=== PATIENT | male | born 1990 | race Caucasian/White ===

== ENCOUNTER 2018-03-30 20:15 | Emergency (ER) | payer MEDICARE, MEDICAID ==
[2018-03-30 20:36] VITALS: BP 124/67
--- NOTE | 2018-03-30 21:12 | UC ---
Respiratory Complaint HPI - HPI Summary HPI Summary: Patient presents to urgent care reporting 7-8 days of cough with productive yellow to green sputum. Patient states he felt warm but hasn't taken his temperature. Patient states at times she feels wheezing. Patient works [employer] has had multiple sick contacts. Patient states he did get a flu shot this year. Patient denies nausea vomiting. Patient with mild head congestion. She denies ear pain but states his ears feel "plugged." Patient denies nausea or vomiting. Patient states his chest and lungs hurt from coughing. Patient has not taken any [id number] cough medication. No asthma, no lung dx, no tobacco Patient's medications reviewed this visit. - History of Current Complaint Chief Complaint: UCGeneralIllness Stated Complaint: COUGH Time Seen by Provider: 03/30/18 21:11 Hx Obtained From: Patient Onset/Duration: Lasting Days Severity Initially: Mild Severity Currently: Mild Pain Intensity: 2 - with coughing Pain Scale Used: 0-10 Numeric - Allergies/Home Medications Allergies/Adverse Reactions: Allergies Allergy/AdvReac Type Severity Reaction Status Date / Time No Known Allergies Allergy Verified 03/30/18 20:26 PMH/Surg Hx/FS Hx/Imm Hx Previously Healthy: Yes Psychological History: Depression Other History Of: Negative For: HIV, Hepatitis B, Hepatitis C, Anticoagulant Therapy - Surgical History Surgical History: Yes Surgery Procedure, Year, and Place: appendectomy - Family History Known Family History: Positive: Diabetes, Non-Contributory Negative: Cardiac Disease, Hypertension, Renal Disease - Social History Occupation: Employed Full-time - [employer] Alcohol Use: None Substance Use Type: None Smoking Status (MU): Never Smoked Tobacco Review of Systems All Other Systems Reviewed And Are Negative: Yes Constitutional: Positive: Fever - tactile Skin: Positive: Negative Eyes: Positive: Negative ENT: Positive: Ear Ache - plugged, Nasal Discharge, Sinus Congestion, Sinus Pain /Tenderness Respiratory: Positive: Cough, Other - chest discomfort with cough. Negative: Shortness Of Breath Physical Exam - Summary Physical Exam Summary: Vital Signs Reviewed: Yes A+Ox3, no distress Eyes: Conjunctiva Clear, ALEX. EOM intact and full ENT: Hearing grossly normal cerumen b/l canals, turbinates inflammed. mild PND , mmoist, uvula midline, no exudate, no erythema Neck: Positive: Supple Respiratory: Positive: No respiratory distress, No accessory muscle use, mild intermittent cough, end exp wheeze throughout n Cardiovascular: RRR nl s1, s2 no m/r CBT <2 sec abd soft + BS nt/nd no guarding, no distension Musculoskeletal Exam: MARIE x 4 without difficulty Strength Intact, ROM Intact Neurological: Positive: Alert, + sensation throughout Psychological: Positive: Normal Response To Family Skin: Positive: no rash, no ecchymosis Triage Information Reviewed: Yes Vital Signs: Initial Vital Signs Temp 97.3 F 03/30/18 20:30 Pulse 87 03/30/18 20:30 Resp 18 03/30/18 20:30 BP 124/67 03/30/18 20:30 Pulse Ox 99 03/30/18 20:30 UC Diagnostic Evaluation - Laboratory O2 Sat by Pulse Oximetry: 99 Re-Evaluation - Re-Evaluation First Eval Change: Improved - TM x2 visulaized s/p irrigation- no fluid, erythrma Respiratory Course/Dx - Course Course Of Treatment: Patient presents to urgent care with some 8 days of progressive cough productive of yellow-green sputum. An x-ray wheezing. Nasal congestion. Patient also reports tactile temperature fatigue. 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 Patient to get the flu vaccine. These vital signs stable. On exam patient with mild intermittent cough. Patient does have and expiratory wheezing throughout. No accessory muscle use. Patient also noted to have cerumen impaction bilaterally. We'll irrigate the ears. We'll start patient on amoxicillin as well as an MDI. Patient comfortable and seizures before. Discussed with patient [id number] medications, secretion precaution. Humidified air. Patient states understanding and agreement with plan. - Differential Dx/Diagnosis Provider Diagnoses: cerumen impaction. acute bronchitis Discharge - Sign-Out/Discharge Documenting (check all that apply): Patient Departure All imaging exams completed and their final reports reviewed: No Studies - Discharge Plan Condition: Stable Disposition: HOME Prescriptions: Amoxicillin PO (*) [Amoxicillin 500 MG CAP*] 500 mg PO Q12H #13 cap Patient Education Materials: Cerumen Impaction (ED), Acute Bronchitis (ED) Referrals: Oscar Sloan MD [Primary Care Provider] - Additional Instructions: -Take antibiotics exactly as prescribed until gone -Use your albuterol puffer - 2 puffs ever 4 hours for the next 2 days - then as needed -Stay well hydrated - avoid excess caffeine and all alcohol - eat regular, healthy meals - - humidify the air in the room where you sleep - boil water, run a hot steam shower, vaporizer, cups of water by heat register - okay to take over the counter decongestant and cough medication -- These infections are spread by secretions - do NOT share eating or drinking utensils - clean items you share with other people such as cell phones, computer mouse, TV remote, computer tablets,etc.. Once you have been antibiotics for 2 days, change your toothbrush and your pillowcase. -Contact your doctor to arrange a follow-up appointment this week. Call your doctor, return here or go to the emergency department with any questions or concerns - Billing Disposition and Condition Condition: STABLE Disposition: Home
[2018-03-30] MEDS ORDERED: Amoxicillin PO (*) 500 MG CAP PO ONE (21:18)
[2018-03-30] MEDS ORDERED: Albuterol HFA INHALER* 8 gm MDI INH ONE (21:19)
== END 2018-03-30 21:50 | disposition home or self-care (01) ==
LOC: UCEAST 20:15
DX: J20.9 Acute bronchitis, unspecified (principal); H61.23 Impacted cerumen, bilateral
CPT/HCPCS: 99212; A9270-GY; G0463

== ENCOUNTER 2018-12-13 18:41 | Emergency (ER) | payer MEDICARE, MEDICAID ==
[2018-12-13] MEDS ORDERED: Tetan/Diph/Pertus SYR(Tdap)* 0.5 ML SYR(BOOSTRIX) use SYR IM ONE (18:53)
[2018-12-13] MEDS ORDERED: Ciprofloxacin TAB* 500 MG PO ONE (18:59)
--- NOTE | 2018-12-13 19:03 | ED ---
Lower Extremity - HPI Summary HPI Summary: 28-year-old male presents after stepping on 2 nails today. He states that he was working on a barn and ended up stepping on two nails. He states that nails went through his shoe into his foot. He removed his foot from the board and the nails came out of his foot. He is unsure of his last tetanus was. He did not clean the area out. He is able to ambulate without difficulty. Has no medical conditions. denies any foreign body currently. - History of Current Complaint Chief Complaint: EDExtremityLower Stated Complaint: STEPPED ON A NAIL PER PT Time Seen by Provider: 12/13/18 18:52 Pain Intensity: 10 - Allergies/Home Medications Allergies/Adverse Reactions: Allergies Allergy/AdvReac Type Severity Reaction Status Date / Time No Known Allergies Allergy Verified 03/30/18 20:26 Home Medications: Home Medications raNITIdine HCl [Ranitidine HCl] 150 mg PO BID 12/13/18 [History Confirmed ] PMH/Surg Hx/FS Hx/Imm Hx Endocrine/Hematology History: Denies: Hx Anticoagulant Therapy, Hx Diabetes, Hx Thyroid Disease Cardiovascular History: Denies: Hx Congestive Heart Failure, Hx Deep Vein Thrombosis, Hx Hypertension , Hx Myocardial Infarction, Hx Pacemaker/ICD Respiratory History: Denies: Hx Asthma, Hx Chronic Obstructive Pulmonary Disease (COPD), Hx Lung Cancer, Hx Pneumonia, Hx Pulmonary Embolism GI History: Denies: Hx Gall Bladder Disease, Hx Gastrointestinal Bleed, Hx Ulcer, Hx Urosepsis History: Denies: Hx Kidney Stones, Hx Renal Disease Neurological History: Denies: Hx Dementia, Hx Migraine, Hx Seizures, Hx Transient Ischemic Attacks (TIA) Psychiatric History: Reports: Hx of Violent Episodes Against Others - When patient isn't taking meds Denies: Hx Anxiety, Hx Depression, Hx Schizophrenia, Hx Bipolar Disorder - Surgical History Surgery Procedure, Year, and Place: appendectomy Infectious Disease History: No Infectious Disease History: Denies: Hx Hepatitis, Hx Human Immunodeficiency Virus (HIV), History Other Infectious Disease, Traveled Outside the [place] in Last 30 Days - Family History Known Family History: Positive: Diabetes, Non-Contributory Negative: Cardiac Disease, Hypertension, Renal Disease - Social History Alcohol Use: None Substance Use Type: Reports: None Smoking Status (MU): Never Smoked Tobacco Review of Systems Negative: Fever Negative: Chest Pain Negative: Shortness Of Breath Positive: Other - puncture wound left foot All Other Systems Reviewed And Are Negative: Yes Physical Exam Triage Information Reviewed: Yes Vital Signs On Initial Exam: Initial Vitals Temp Pulse Resp BP Pulse Ox 98.0 F 101 17 182/103 98 12/13/18 18:43 12/13/18 18:43 12/13/18 18:43 12/13/18 18:43 12/13/18 18:43 Vital Signs Reviewed: Yes Appearance: Positive: Well-Appearing Skin: Positive: Warm, Dry, Other - 2 puncture wounds to left foot Head/Face: Positive: Normal Head/Face Inspection Eyes: Positive: Normal, Conjunctiva Clear ENT: Positive: Pharynx normal Respiratory/Lung Sounds: Positive: Clear to Auscultation, Breath Sounds Present Cardiovascular: Positive: Normal, RRR Musculoskeletal: Positive: Strength/ROM Intact - left foot, Other - good pulses Neurological: Positive: Normal Psychiatric: Positive: Normal Diagnostics - Vital Signs Vital Signs Temp Pulse Resp BP Pulse Ox 12/13/18 18:43 98.0 F 101 17 182/103 98 - Laboratory Lab Statement: Any lab studies that have been ordered have been reviewed, and results considered in the medical decision making process. Lower Extremity Course/Dx - Course Course Of Treatment: 28-year-old male presents after stepping on 2 nails today. He states that he was working on a barn and ended up stepping on two nails. He states that nails went through his shoe into his foot. He removed his foot from the board and the nails came out of his foot. He is unsure of his last tetanus was. He did not clean the area out. He is able to ambulate without difficulty. Has no medical conditions. On exam has 2 puncture wounds noted to the left foot. Area was irrigated out. gave tetanus and started on Cipro due to going through nail going through shoes. told if develop any signs of infection to return. Patient understands agrees with plan. - Diagnoses Differential Diagnosis/HQI/PQRI: Positive: Foreign Body, Infection, Other - puncture wound, laceration Provider Diagnoses: Puncture wound of left foot Discharge - Sign-Out/Discharge Documenting (check all that apply): Patient Departure Patient Received Moderate/Deep Sedation with Procedure: No - Discharge Plan Condition: Good Disposition: HOME Prescriptions: Ciprofloxacin TAB* [Cipro 500 MG TAB*] 500 mg PO BID #13 tab Patient Education Materials: Puncture Wound (ED) Referrals: Oscar Sloan MD [Primary Care Provider] - Additional Instructions: Take antibiotic twice a day for 7 days Soak area twice a day Place Neosporin on area Return to ED if develop any signs of infection such as spreading redness, fever , or pus, or any new or worsening symptoms - Billing Disposition and Condition Condition: GOOD Disposition: Home - Attestation Statements Provider Attestation: I am administratively signing this document. I was available for consultation for this patient. I did not evaluate the patient, did not have a doctor/patient relationship with the patient, or participate in any medical decision making or disposition decisions unless I am specifically named in the chart as having consulted on the patient. If I have consulted on the patient, please see my own ED note on the patient encounter. Will Burks MD
[2018-12-13 19:14] VITALS: BP 154/91
== END 2018-12-13 19:13 | disposition home or self-care (01) ==
LOC: ED 18:41
DX: S91.332A Puncture wound without foreign body, left foot, initial encounter (principal); Z23 Encounter for immunization; W22.8XXA Striking against or struck by other objects, initial encounter; Y92.71 Barn as the place of occurrence of the external cause; Y99.0 Civilian activity done for income or pay
CPT/HCPCS: 90471; 90715; 99282; A9270-GY

== ENCOUNTER 2021-05-20 16:06 | Inpatient (IN) ==
[2021-05-20 17:55] LABS: ABS Basophils 0.1 10^3/ul (0-0.2); ABS Lymphocytes 1.4 10^3/ul (1.0-4.8); ABS Monocytes 0.5 10^3/ul (0-0.8); ABS Neutrophils 4.4 10^3/ul (1.5-7.7); ABS Nucleated RBC 0.1 10^3/ul; Eosinophil % 0.7 %; Hematocrit 18 % (42-52); Hemoglobin 5.5 g/dL (14.0-18.0); Lymphocyte % 21.4 %; Mean Corpuscular HGB Conc 30 g/dL (31-36); Mean Corpuscular Hemoglobin 19 pg (27-31); Mean Corpuscular Volume 61 fL (80-94); Mean Platelet Volume 7.4 fL (7.4-10.4); Nucleated Red Blood Cells % 0.9; Platelet Count 386 10^3/uL (150-450); Red Blood Count 2.95 10^6 /uL (4.18-5.48); Red Cell Distribution Width 20 % (10-15); White Blood Count 6.4 10^3/uL (3.5-10.8)
[2021-05-20 18:03] LABS: Albumin 4.4 g/dL (3.2-5.2); Albumin/Globulin Ratio 1.8 (1-3); Calcium 8.6 mg/dL (8.6-10.3); Globulin 2.5 g/dL (2-4); Potassium 3.4 mmol/L (3.5-5.0); Total Bilirubin 0.3 mg/dL (0.2-1.0); Total Protein 6.9 g/dL (6.4-8.9); eGFR CKD-EPI 125.8 (>60)
[2021-05-20 18:06] LABS: Troponin I 0.01 ng/mL (<0.03)
[2021-05-20] MEDS ORDERED: Pantoprazole VIAL 40 MG VIAL IV ONE (18:42)
[2021-05-20] MEDS ORDERED: Potassium Chlor 20 meq TAB.ER PO ONE (21:45)
[2021-05-20] MEDS ORDERED: Ondansetron 4 mg VIAL 2 MG/ML 2 ml VIAL IV PRN (22:20)
[2021-05-21 00:50] LABS: Ferritin 1.6 ng/mL (24-336)
[2021-05-21 00:54] LABS: Folate 14.14 ng/mL (5.90-24.80)
[2021-05-21 01:23] LABS: Troponin I 0.01 ng/mL (<0.03)
[2021-05-21 06:02] LABS: ABS Basophils 0.1 10^3/ul (0-0.2); ABS Eosinophils 0.1 10^3/ul (0-0.6); ABS Lymphocytes 1.8 10^3/ul (1.0-4.8); ABS Monocytes 0.7 10^3/ul (0-0.8); ABS Neutrophils 4.2 10^3/ul (1.5-7.7); ABS Nucleated RBC 0.1 10^3/ul; Eosinophil % 1.7 %; Hematocrit 18 % (42-52); Hemoglobin 5.8 g/dL (14.0-18.0); Lymphocyte % 26.8 %; Mean Corpuscular HGB Conc 32 g/dL (31-36); Mean Corpuscular Hemoglobin 20 pg (27-31); Mean Corpuscular Volume 63 fL (80-94); Mean Platelet Volume 6.7 fL (7.4-10.4); Nucleated Red Blood Cells % 0.7; Platelet Count 322 10^3/uL (150-450); Red Blood Count 2.88 10^6 /uL (4.18-5.48); Red Cell Distribution Width 23 % (10-15); White Blood Count 6.9 10^3/uL (3.5-10.8)
[2021-05-21 06:13] LABS: Albumin 4.1 g/dL (3.2-5.2); Calcium 8.6 mg/dL (8.6-10.3); Direct Bilirubin 0.1 mg/dL (0.03-0.18); Globulin 2.1 g/dL (2-4); Indirect Bilirubin 0.5 mg/dL (0.3-1.0); Potassium 3.9 mmol/L (3.5-5.0); Total Bilirubin 0.6 mg/dL (0.2-1.0); Total Protein 6.2 g/dL (6.4-8.9); eGFR CKD-EPI 125.8 (>60)
[2021-05-21] MEDS: Pantoprazole VIAL 40 MG VIAL IV SCH (09:31)
[2021-05-21] MEDS ORDERED: PEG 3000 GI LAVAGE 1 GALLON PO ONE ×2 (09:39→17:00)
[2021-05-21 11:12] LABS: Hematocrit 21 % (42-52); Hemoglobin 6.5 g/dL (14.0-18.0)
[2021-05-21 21:32] LABS: Hematocrit 26 % (42-52); Hemoglobin 8.2 g/dL (14.0-18.0)
[2021-05-22 06:17] LABS: Hematocrit 24 % (42-52); Hemoglobin 7.9 g/dL (14.0-18.0); Mean Corpuscular HGB Conc 33 g/dL (31-36); Mean Corpuscular Hemoglobin 22 pg (27-31); Mean Corpuscular Volume 67 fL (80-94); Mean Platelet Volume 8.4 fL (7.4-10.4); Platelet Count 277 10^3/uL (150-450); Red Blood Count 3.61 10^6 /uL (4.18-5.48); Red Cell Distribution Width 27 % (10-15); White Blood Count 6.2 10^3/uL (3.5-10.8)
[2021-05-22 06:38] LABS: Calcium 8.5 mg/dL (8.6-10.3); Potassium 3.7 mmol/L (3.5-5.0); eGFR CKD-EPI 124.7 (>60)
[2021-05-22] MEDS ORDERED: PEG 3000 GI LAVAGE 1 GALLON PO ONE ×2 (08:00→16:30)
[2021-05-22] MEDS: Pantoprazole VIAL 40 MG VIAL IV SCH (08:37)
[2021-05-22] MEDS ORDERED: Midazolam 10 mg/10 ml VIAL 1 mg/ml 10 ml VIAL (10 mg) ONE (15:46)
[2021-05-22] MEDS ORDERED: fentaNYL 100 mcg/2 ml 50 MCG/ML VIAL ONE (15:46)
[2021-05-23 06:14] LABS: ABS Basophils 0.1 10^3/ul (0-0.2); ABS Eosinophils 0.2 10^3/ul (0-0.6); ABS Lymphocytes 1.6 10^3/ul (1.0-4.8); ABS Monocytes 0.6 10^3/ul (0-0.8); ABS Neutrophils 3.5 10^3/ul (1.5-7.7); Eosinophil % 2.8 %; Hematocrit 25 % (42-52); Hemoglobin 8.2 g/dL (14.0-18.0); Lymphocyte % 26.8 %; Mean Corpuscular HGB Conc 33 g/dL (31-36); Mean Corpuscular Hemoglobin 22 pg (27-31); Mean Corpuscular Volume 67 fL (80-94); Mean Platelet Volume 8.3 fL (7.4-10.4); Nucleated Red Blood Cells % 0.2; Platelet Count 266 10^3/uL (150-450); Red Blood Count 3.77 10^6 /uL (4.18-5.48); Red Cell Distribution Width 28 % (10-15)
[2021-05-23 06:24] LABS: Calcium 8.6 mg/dL (8.6-10.3); Magnesium 2.2 mg/dL (1.9-2.7); Potassium 3.5 mmol/L (3.5-5.0); eGFR CKD-EPI 124.2 (>60)
[2021-05-23] MEDS ORDERED: Flu vaccine *QUAD* 2021-22* 0.5 ML SYRINGE IM ONE (09:00)
[2021-05-23] MEDS: Pantoprazole VIAL 40 MG VIAL IV SCH (10:39)
[2021-05-23 15:13] LABS: % Iron Saturation 3 % (14 - 50); Total Iron Binding Capacity 430 mcg/dL (250 - 400)
[2021-05-23] MEDS ORDERED: fentaNYL 100 mcg/2 ml 50 MCG/ML VIAL ONE (15:36)
[2021-05-23] MEDS ORDERED: Midazolam 10 mg/10 ml VIAL 1 mg/ml 10 ml VIAL (10 mg) ONE (15:36)
[2021-05-24] MEDS ORDERED: Iron Sucrose 200 MG in NS 0.9% 100 ml BAG 100 ML IVPB ONE (07:15)
[2021-05-24 07:25] LABS: ABS Basophils 0.1 10^3/ul (0-0.2); ABS Eosinophils 0.2 10^3/ul (0-0.6); ABS Lymphocytes 1.4 10^3/ul (1.0-4.8); ABS Monocytes 0.5 10^3/ul (0-0.8); ABS Neutrophils 2.9 10^3/ul (1.5-7.7); Hematocrit 25 % (42-52); Hemoglobin 8.1 g/dL (14.0-18.0); Mean Corpuscular HGB Conc 32 g/dL (31-36); Mean Corpuscular Hemoglobin 22 pg (27-31); Mean Corpuscular Volume 67 fL (80-94); Mean Platelet Volume 8.3 fL (7.4-10.4); Nucleated Red Blood Cells % 0.1; Platelet Count 242 10^3/uL (150-450); Red Blood Count 3.72 10^6 /uL (4.18-5.48); Red Cell Distribution Width 28 % (10-15); White Blood Count 5.1 10^3/uL (3.5-10.8)
[2021-05-24 07:39] LABS: Calcium 8.8 mg/dL (8.6-10.3); Magnesium 2.1 mg/dL (1.9-2.7); Potassium 3.8 mmol/L (3.5-5.0); eGFR CKD-EPI 112.6 (>60)
[2021-05-24 11:50] VITALS: BP 153/82
[2021-05-24 13:06] LABS: Erythrocyte Sed Rate 20 mm/Hr (0-14)
== END 2021-05-24 13:40 | disposition home or self-care (01) | DRG 812 ==
LOC: ED 16:06 → SUATTDRO 21:44 → EDHOLD 21:44 → SSU 05-21 05:11
PROVIDERS: ADMIT Internal Medicine; ATTEND Internal Medicine

== ENCOUNTER 2021-05-24 14:31 | Inpatient (IN) ==
[2021-05-24 15:15] LABS: Hematocrit 27 % (42-52); Hemoglobin 8.5 g/dL (14.0-18.0); Mean Corpuscular HGB Conc 32 g/dL (31-36); Mean Corpuscular Hemoglobin 21 pg (27-31); Mean Corpuscular Volume 68 fL (80-94); Mean Platelet Volume 8.3 fL (7.4-10.4); Platelet Count 292 10^3/uL (150-450); Red Cell Distribution Width 28 % (10-15); White Blood Count 9.3 10^3/uL (3.5-10.8)
[2021-05-24 15:40] LABS: Microcytosis 3+
[2021-05-24 15:41] LABS: Anisocytosis 2+; Hypochromasia 1+; Polychromasia 1+
[2021-05-24 15:42] LABS: ABS Lymphocytes 0.9 10^3/ul (1.0-4.8); ABS Monocytes 0.3 10^3/ul (0-0.8); Eosinophil % 0.5 %; Lymphocyte % 9.3 %; Nucleated Red Blood Cells % 0.2
[2021-05-24 15:45] LABS: Albumin 4.4 g/dL (3.2-5.2); Albumin/Globulin Ratio 1.6 (1-3); C Reactive Protein 40.11 mg/L (<8.01); Calcium 9.4 mg/dL (8.6-10.3); Globulin 2.7 g/dL (2-4); Potassium 3.8 mmol/L (3.5-5.0); Total Bilirubin 0.5 mg/dL (0.2-1.0); Total Protein 7.1 g/dL (6.4-8.9)
[2021-05-24] MEDS ORDERED: Lactated Ringers 1000 ml BAG 1,000 ML IV ONE ×2 (15:55)
[2021-05-24] MEDS ORDERED: Iohexol 300 (CONTRAST) 10 ML SDV IV ONE (16:40)
[2021-05-24] MEDS ORDERED: Ondansetron 4 mg VIAL 2 MG/ML 2 ml VIAL IV PRN (17:14)
[2021-05-24] MEDS ORDERED: Acetaminophen IV 1 GM/100ML VI 100 ML IV PRN (17:14)
[2021-05-24] MEDS ORDERED: Morphine 2 MG/ML SYRINGE IV PRN (17:15)
[2021-05-24] MEDS ORDERED: ZOSYN 3.375 GM x ONE DOSE over 30 miuntes IV (17:15)
[2021-05-24] MEDS: Pantoprazole VIAL 40 MG VIAL IV SCH ×2 (17:23→21:56)
[2021-05-24] MEDS ORDERED: Zosyn per Pharmacy NOTE FOLLOW UP SCH (18:00)
[2021-05-24] MEDS: Lactated Ringers 1000 ml BAG 1,000 ML IV SCH (18:17)
[2021-05-24 19:09] LABS: Calcium 9.1 mg/dL (8.6-10.3); Potassium 3.9 mmol/L (3.5-5.0)
[2021-05-24 19:24] LABS: Urine Benzodiazepine Screen Presumptive Positive (None Detect); Urine Cannabinoids Screen None Detected (None Detect); Urine Opiates Screen None Detected (None Detect)
[2021-05-24 19:32] LABS: Urine Appearance Clear; Urine Bilirubin Negative (Negative); Urine Blood Negative (Negative); Urine Color Straw; Urine Glucose Negative (Negative); Urine Ketones Negative (Negative); Urine Nitrite Negative (Negative); Urine Protein Negative (Negative); Urine Specific Gravity 1.048 (1.002-1.030); Urine Urobilinogen Negative (Negative)
[2021-05-24] MEDS: ZOSYN 3.375 GM Q8H per EXTENDED INFUSION IV SCH (21:55)
[2021-05-24 22:04] LABS: ABS Basophils 0.1 10^3/ul (0-0.2); ABS Lymphocytes 1.1 10^3/ul (1.0-4.8); ABS Monocytes 0.5 10^3/ul (0-0.8); ABS Neutrophils 5.9 10^3/ul (1.5-7.7); Eosinophil % 0.4 %; Hematocrit 22 % (42-52); Hemoglobin 7.4 g/dL (14.0-18.0); Lymphocyte % 14.6 %; Mean Corpuscular HGB Conc 33 g/dL (31-36); Mean Corpuscular Hemoglobin 22 pg (27-31); Mean Corpuscular Volume 67 fL (80-94); Mean Platelet Volume 8.2 fL (7.4-10.4); Nucleated Red Blood Cells % 0.2; Platelet Count 238 10^3/uL (150-450); Red Blood Count 3.32 10^6 /uL (4.18-5.48); Red Cell Distribution Width 28 % (10-15); White Blood Count 7.6 10^3/uL (3.5-10.8)
[2021-05-24 22:20] LABS: INR 1.39 (0.86-1.15)
[2021-05-25] MEDS: Lactated Ringers 1000 ml BAG 1,000 ML IV SCH (03:25)
[2021-05-25] MEDS: ZOSYN 3.375 GM Q8H per EXTENDED INFUSION IV SCH ×3 (05:42→20:12)
[2021-05-25 06:42] LABS: Albumin 3.7 g/dL (3.2-5.2); Albumin/Globulin Ratio 1.8 (1-3); Calcium 8.5 mg/dL (8.6-10.3); Globulin 2.1 g/dL (2-4); Total Bilirubin 0.4 mg/dL (0.2-1.0); Total Protein 5.8 g/dL (6.4-8.9); eGFR CKD-EPI 121.8 (>60)
[2021-05-25 07:37] LABS: C Reactive Protein 76.38 mg/L (<8.01); Magnesium 1.9 mg/dL (1.9-2.7)
[2021-05-25 08:06] LABS: ABS Basophils 0.1 10^3/ul (0-0.2); ABS Eosinophils 0.1 10^3/ul (0-0.6); ABS Lymphocytes 1.9 10^3/ul (1.0-4.8); ABS Monocytes 0.6 10^3/ul (0-0.8); ABS Neutrophils 3.7 10^3/ul (1.5-7.7); Eosinophil % 2.1 %; Hematocrit 23 % (42-52); Hemoglobin 7.2 g/dL (14.0-18.0); Lymphocyte % 29.5 %; Mean Corpuscular HGB Conc 31 g/dL (31-36); Mean Corpuscular Hemoglobin 21 pg (27-31); Mean Corpuscular Volume 68 fL (80-94); Mean Platelet Volume 8.6 fL (7.4-10.4); Nucleated Red Blood Cells % 0.2; Platelet Count 233 10^3/uL (150-450); Red Blood Count 3.39 10^6 /uL (4.18-5.48); Red Cell Distribution Width 28 % (10-15); White Blood Count 6.5 10^3/uL (3.5-10.8)
[2021-05-25] MEDS: Pantoprazole VIAL 40 MG VIAL IV SCH ×2 (10:42→20:12)
[2021-05-25 13:17] LABS: Hematocrit 24 % (42-52); Hemoglobin 7.7 g/dL (14.0-18.0); Mean Corpuscular HGB Conc 32 g/dL (31-36); Mean Corpuscular Hemoglobin 21 pg (27-31); Mean Corpuscular Volume 67 fL (80-94); Mean Platelet Volume 8.3 fL (7.4-10.4); Platelet Count 229 10^3/uL (150-450); Red Cell Distribution Width 29 % (10-15); White Blood Count 5.2 10^3/uL (3.5-10.8)
[2021-05-25 14:01] LABS: ABS Basophils 0.1 10^3/ul (0-0.2); ABS Eosinophils 0.1 10^3/ul (0-0.6); ABS Lymphocytes 1.5 10^3/ul (1.0-4.8); ABS Monocytes 0.4 10^3/ul (0-0.8); Eosinophil % 2.5 %; Lymphocyte % 29.5 %; Nucleated Red Blood Cells % 0.2
[2021-05-25] MEDS ORDERED: Iohexol 350 (CONTRAST) 500 ML MDV IV ONE (14:14)
[2021-05-25 17:36] LABS: ABS Basophils 0.1 10^3/ul (0-0.2); ABS Eosinophils 0.2 10^3/ul (0-0.6); ABS Lymphocytes 1.7 10^3/ul (1.0-4.8); ABS Monocytes 0.4 10^3/ul (0-0.8); ABS Neutrophils 2.4 10^3/ul (1.5-7.7); Eosinophil % 3.3 %; Hematocrit 24 % (42-52); Hemoglobin 7.5 g/dL (14.0-18.0); Lymphocyte % 36.1 %; Mean Corpuscular HGB Conc 31 g/dL (31-36); Mean Corpuscular Hemoglobin 21 pg (27-31); Mean Corpuscular Volume 68 fL (80-94); Mean Platelet Volume 8.1 fL (7.4-10.4); Nucleated Red Blood Cells % 0.1; Platelet Count 232 10^3/uL (150-450); Red Blood Count 3.53 10^6 /uL (4.18-5.48); Red Cell Distribution Width 29 % (10-15); White Blood Count 4.7 10^3/uL (3.5-10.8)
[2021-05-25] MEDS: Heparin DRIP 25,000 UNITS BAG 25,000 UNITS/500 ML BAG IV SCH (17:54)
[2021-05-25] MEDS ORDERED: Heparin 5000 UNITS/ML 1 mL VIAL IV SCH (18:00)
[2021-05-25 18:33] LABS: Anisocytosis 3+; Polychromasia 1+
[2021-05-25 23:03] LABS: Hematocrit 24 % (42-52); Hemoglobin 7.6 g/dL (14.0-18.0); Mean Corpuscular HGB Conc 31 g/dL (31-36); Mean Corpuscular Hemoglobin 22 pg (27-31); Mean Corpuscular Volume 68 fL (80-94); Mean Platelet Volume 8.2 fL (7.4-10.4); Platelet Count 228 10^3/uL (150-450); Red Blood Count 3.52 10^6 /uL (4.18-5.48); Red Cell Distribution Width 29 % (10-15); White Blood Count 5.8 10^3/uL (3.5-10.8)
[2021-05-26 07:14] LABS: Hematocrit 28 % (42-52); Hemoglobin 8.8 g/dL (14.0-18.0); Mean Corpuscular HGB Conc 31 g/dL (31-36); Mean Corpuscular Hemoglobin 22 pg (27-31); Mean Corpuscular Volume 70 fL (80-94); Mean Platelet Volume 8.6 fL (7.4-10.4); Platelet Count 193 10^3/uL (150-450); Red Blood Count 4.01 10^6 /uL (4.18-5.48); Red Cell Distribution Width 28 % (10-15); White Blood Count 6.1 10^3/uL (3.5-10.8)
[2021-05-26 07:46] LABS: Calcium 8.8 mg/dL (8.6-10.3); Magnesium 1.9 mg/dL (1.9-2.7); Potassium 4.1 mmol/L (3.5-5.0)
[2021-05-26 07:52] LABS: C Reactive Protein 62.58 mg/L (<8.01); eGFR CKD-EPI 124.2 (>60)
[2021-05-26] MEDS: Heparin DRIP 25,000 UNITS BAG 25,000 UNITS/500 ML BAG IV SCH ×2 (08:15→23:53)
[2021-05-26 08:31] LABS: ABS Eosinophils 0.2 10^3/ul (0-0.6); ABS Lymphocytes 2.6 10^3/ul (1.0-4.8); ABS Monocytes 0.6 10^3/ul (0-0.8); ABS Neutrophils 2.6 10^3/ul (1.5-7.7); Eosinophil % 3.9 %; Lymphocyte % 42.8 %; Nucleated Red Blood Cells % 0.1
[2021-05-26] MEDS: ZOSYN 3.375 GM Q8H per EXTENDED INFUSION IV SCH ×3 (08:44→17:02)
[2021-05-26] MEDS ORDERED: Perflutren Lipid Microsphere 3 ML VIAL ONE (09:28)
[2021-05-26] MEDS: Pantoprazole VIAL 40 MG VIAL IV SCH ×2 (10:00→20:12)
[2021-05-27] MEDS: ZOSYN 3.375 GM Q8H per EXTENDED INFUSION IV SCH ×3 (01:59→17:51)
[2021-05-27 08:42] LABS: Albumin 4.1 g/dL (3.2-5.2); Albumin/Globulin Ratio 1.6 (1-3); Calcium 8.9 mg/dL (8.6-10.3); Globulin 2.6 g/dL (2-4); Magnesium 1.8 mg/dL (1.9-2.7); Potassium 3.8 mmol/L (3.5-5.0); Total Bilirubin 0.4 mg/dL (0.2-1.0); Total Protein 6.7 g/dL (6.4-8.9); eGFR CKD-EPI 126.9 (>60)
[2021-05-27] MEDS: Pantoprazole VIAL 40 MG VIAL IV SCH ×2 (08:43→19:46)
[2021-05-27 09:02] LABS: Hematocrit 28 % (42-52); Hemoglobin 9.2 g/dL (14.0-18.0); Mean Corpuscular HGB Conc 33 g/dL (31-36); Mean Corpuscular Hemoglobin 23 pg (27-31); Mean Corpuscular Volume 69 fL (80-94); Mean Platelet Volume 8.3 fL (7.4-10.4); Platelet Count 223 10^3/uL (150-450); Red Blood Count 4.08 10^6 /uL (4.18-5.48); Red Cell Distribution Width 28 % (10-15)
[2021-05-27 09:33] LABS: ABS Basophils 0.1 10^3/ul (0-0.2); ABS Eosinophils 0.2 10^3/ul (0-0.6); ABS Lymphocytes 1.7 10^3/ul (1.0-4.8); ABS Monocytes 0.4 10^3/ul (0-0.8); ABS Neutrophils 2.7 10^3/ul (1.5-7.7); Eosinophil % 4.3 %; Lymphocyte % 33.5 %; Nucleated Red Blood Cells % 0.1
[2021-05-27] MEDS ORDERED: Magnesium Sulfate 2 gm BAG 2 GM/50 ML BAG IVPB ONE (10:20)
[2021-05-27 11:12] LABS: Urine Appearance Clear; Urine Bilirubin Negative (Negative); Urine Blood Negative (Negative); Urine Color Yellow; Urine Glucose Negative (Negative); Urine Ketones Negative (Negative); Urine Nitrite Negative (Negative); Urine Protein Negative (Negative); Urine Specific Gravity 1.013 (1.002-1.030); Urine Urobilinogen Negative (Negative)
[2021-05-27] MEDS ORDERED: Iron Sucrose 200 MG in NS 0.9% 100 ml BAG 100 ML IVPB ONE (15:55)
[2021-05-27] MEDS: Heparin DRIP 25,000 UNITS BAG 25,000 UNITS/500 ML BAG IV SCH (16:29)
[2021-05-28] MEDS: ZOSYN 3.375 GM Q8H per EXTENDED INFUSION IV SCH ×3 (00:49→17:55)
[2021-05-28 09:11] LABS: Calcium 8.9 mg/dL (8.6-10.3); Phosphorus 4.5 mg/dL (2.5-5.0); Potassium 3.9 mmol/L (3.5-5.0); eGFR CKD-EPI 124.2 (>60)
[2021-05-28 09:13] LABS: ABS Basophils 0.1 10^3/ul (0-0.2); ABS Eosinophils 0.2 10^3/ul (0-0.6); ABS Lymphocytes 1.5 10^3/ul (1.0-4.8); ABS Monocytes 0.4 10^3/ul (0-0.8); ABS Neutrophils 2.2 10^3/ul (1.5-7.7); Eosinophil % 3.8 %; Hematocrit 29 % (42-52); Hemoglobin 9.4 g/dL (14.0-18.0); Lymphocyte % 34.9 %; Mean Corpuscular HGB Conc 32 g/dL (31-36); Mean Corpuscular Hemoglobin 22 pg (27-31); Mean Corpuscular Volume 69 fL (80-94); Mean Platelet Volume 8.3 fL (7.4-10.4); Platelet Count 229 10^3/uL (150-450); Red Blood Count 4.23 10^6 /uL (4.18-5.48); Red Cell Distribution Width 29 % (10-15); White Blood Count 4.3 10^3/uL (3.5-10.8)
[2021-05-28] MEDS: Heparin DRIP 25,000 UNITS BAG 25,000 UNITS/500 ML BAG IV SCH (10:23)
[2021-05-28] MEDS: Pantoprazole VIAL 40 MG VIAL IV SCH ×2 (10:28→20:51)
[2021-05-29] MEDS: Heparin DRIP 25,000 UNITS BAG 25,000 UNITS/500 ML BAG IV SCH (02:39)
[2021-05-29] MEDS: ZOSYN 3.375 GM Q8H per EXTENDED INFUSION IV SCH ×3 (02:39→17:23)
[2021-05-29 08:15] LABS: Red Cell Distribution Width 28 % (10-15)
[2021-05-29 08:16] LABS: ABS Eosinophils 0.1 10^3/ul (0-0.6); ABS Lymphocytes 1.7 10^3/ul (1.0-4.8); ABS Monocytes 0.4 10^3/ul (0-0.8); ABS Neutrophils 2.2 10^3/ul (1.5-7.7); Eosinophil % 2.7 %; Hematocrit 31 % (42-52); Hemoglobin 9.6 g/dL (14.0-18.0); Lymphocyte % 37.4 %; Mean Corpuscular HGB Conc 31 g/dL (31-36); Mean Corpuscular Hemoglobin 22 pg (27-31); Mean Corpuscular Volume 70 fL (80-94); Mean Platelet Volume 8.4 fL (7.4-10.4); Platelet Count 235 10^3/uL (150-450); Red Blood Count 4.35 10^6 /uL (4.18-5.48); White Blood Count 4.4 10^3/uL (3.5-10.8)
[2021-05-29 08:30] LABS: Calcium 8.7 mg/dL (8.6-10.3); eGFR CKD-EPI 124.7 (>60)
[2021-05-29] MEDS ORDERED: Naloxone 0.4 mg VIAL 0.4 mg/ml 1 ml VIAL ONE (08:31)
[2021-05-29] MEDS ORDERED: fentaNYL 100 mcg/2 ml 50 MCG/ML VIAL ONE (08:31)
[2021-05-29] MEDS ORDERED: Flumazenil 0.5 mg/5 ml 0.1 MG/ML 5 ml VIAL ONE (08:31)
[2021-05-29] MEDS ORDERED: Midazolam 5 mg/5 ml VIAL 1 mg/ml 5 ml VIAL (5 mg) ONE (08:31)
[2021-05-29 09:30] LABS: Anisocytosis 2+; Microcytosis 2+
[2021-05-29] MEDS: Pantoprazole VIAL 40 MG VIAL IV SCH ×2 (12:30→21:10)
[2021-05-30] MEDS: ZOSYN 3.375 GM Q8H per EXTENDED INFUSION IV SCH ×3 (01:58→17:31)
[2021-05-30 08:13] LABS: ABS Basophils 0.1 10^3/ul (0-0.2); ABS Eosinophils 0.1 10^3/ul (0-0.6); ABS Lymphocytes 1.4 10^3/ul (1.0-4.8); ABS Monocytes 0.4 10^3/ul (0-0.8); ABS Neutrophils 1.5 10^3/ul (1.5-7.7); Eosinophil % 3.5 %; Hematocrit 31 % (42-52); Hemoglobin 9.8 g/dL (14.0-18.0); Lymphocyte % 39.5 %; Mean Corpuscular HGB Conc 32 g/dL (31-36); Mean Corpuscular Hemoglobin 22 pg (27-31); Mean Corpuscular Volume 70 fL (80-94); Mean Platelet Volume 8.2 fL (7.4-10.4); Nucleated Red Blood Cells % 0.2; Platelet Count 220 10^3/uL (150-450); Red Blood Count 4.38 10^6 /uL (4.18-5.48); Red Cell Distribution Width 28 % (10-15); White Blood Count 3.7 10^3/uL (3.5-10.8)
[2021-05-30 08:27] LABS: Calcium 8.9 mg/dL (8.6-10.3); eGFR CKD-EPI 124.7 (>60)
[2021-05-30] MEDS: Heparin DRIP 25,000 UNITS BAG 25,000 UNITS/500 ML BAG IV SCH (09:31)
[2021-05-30] MEDS: Pantoprazole VIAL 40 MG VIAL IV SCH ×2 (09:37→20:36)
[2021-05-31] MEDS: Heparin DRIP 25,000 UNITS BAG 25,000 UNITS/500 ML BAG IV SCH (01:50)
[2021-05-31] MEDS: ZOSYN 3.375 GM Q8H per EXTENDED INFUSION IV SCH ×2 (01:50→08:49)
[2021-05-31] MEDS: Pantoprazole VIAL 40 MG VIAL IV SCH (08:49)
[2021-05-31 13:02] VITALS: BP 158/80
[2021-06-05 22:30] LABS: Tissue Transglutaminase IgA Ab <1.2 U/mL
[2021-06-05 23:12] LABS: Immunoglobulin A 155 mg/dL (61 - 356)
== END 2021-05-31 17:30 | disposition home or self-care (01) | DRG 871 ==
LOC: MERGE 14:31 → ED 14:31 → MEDTELE 16:59 → SUATTDRO 16:59 → MEDTELE 20:25
PROVIDERS: ADMIT Internal Medicine; ATTEND Internal Medicine

== ENCOUNTER 2023-12-15 19:01 | Observation (INO) ==
[2023-12-15 20:39] LABS: ABS Basophils 0.1 10^3/uL (0.0-0.1); ABS Eosinophils 0.1 10^3/uL (0.0-0.5); ABS Lymphocytes 1.8 10^3/uL (1.0-4.8); ABS Monocytes 0.7 10^3/uL (0.0-1.1); ABS Neutrophils 5.8 10^3/uL (1.5-7.6); ABS Nucleated RBC 0.01 10^3/ul; Anisocytosis 3+; Eosinophil % 1.3 %; Hemoglobin 8.4 g/dL (13.2-16.3); Hypochromasia 1+; Lymphocyte % 21.4 %; Mean Corpuscular Hemoglobin 18.7 pg (27-33); Mean Corpuscular Hgb Conc 31.3 g/dL (31-36); Mean Corpuscular Volume 59.7 fL (80-97); Mean Platelet Volume 8.3 fL (7.5-11.2); Microcytosis 3+; Nucleated Red Blood Cells % 0.1 %/100WBC (0.0-0.8); Platelet Count 289 10^3/uL (150-450); Polychromasia 1+; Red Blood Count 4.51 10^6/uL (4.06-5.63); Red Cell Distribution Width 26.8 % (12-17); White Blood Count 8.6 10^3/uL (3.6-10.2)
[2023-12-15 20:48] LABS: Albumin 4.4 g/dL (3.2-5.2); Albumin/Globulin Ratio 1.8 (1-3); Calcium 9.4 mg/dL (8.6-10.3); Creatinine, Serum 0.77 mg/dL (0.67-1.17); Globulin 2.4 g/dL (2-4); Potassium 4.1 mmol/L (3.5-5.0); Total Bilirubin 0.4 mg/dL (0.2-1.0); Total Protein 6.8 g/dL (6.4-8.9); eGFR CKD-EPI 120.5 (>60)
[2023-12-15 22:08] LABS: High Sensitivity Troponin 1 Hr 25 pg/mL (<20)
[2023-12-15] MEDS: Iohexol 350 (CONTRAST) 500 ML MDV IV ONE (23:17)
[2023-12-16] MEDS: Enoxaparin 100 MG/ML SYR SUBCUT ONE (00:56)
[2023-12-16] MEDS: Heparin DRIP 25,000 UNITS BAG 25,000 UNITS/250 ML BAG IV SCH (01:45)
[2023-12-16] MEDS: Heparin 5000 UNITS/ML 1 mL VIAL IV SCH (01:46)
[2023-12-16 02:36] LABS: ABS Basophils 0.1 10^3/uL (0.0-0.1); ABS Eosinophils 0.2 10^3/uL (0.0-0.5); ABS Lymphocytes 2.3 10^3/uL (1.0-4.8); ABS Monocytes 0.7 10^3/uL (0.0-1.1); ABS Neutrophils 4.7 10^3/uL (1.5-7.6); ABS Nucleated RBC 0.01 10^3/ul; Creatinine, Serum 0.62 mg/dL (0.67-1.17); Hematocrit 26.9 % (38-53); Hemoglobin 8.2 g/dL (13.2-16.3); Lymphocyte % 28.6 %; Mean Corpuscular Hemoglobin 18.3 pg (27-33); Mean Corpuscular Hgb Conc 30.6 g/dL (31-36); Mean Corpuscular Volume 59.9 fL (80-97); Mean Platelet Volume 8.3 fL (7.5-11.2); Nucleated Red Blood Cells % 0.1 %/100WBC (0.0-0.8); Platelet Count 308 10^3/uL (150-450); White Blood Count 7.9 10^3/uL (3.6-10.2); eGFR CKD-EPI 128.6 (>60)
[2023-12-16] MEDS: Sulfur Hexaflouride MICROSPHR 25 MG VIAL IV ONE (08:50)
[2023-12-16] MEDS ORDERED: Sulfur Hexaflouride MICROSPHR 25 MG VIAL ONE (09:01)
[2023-12-16 12:01] VITALS: BP 117/90
== END 2023-12-16 13:43 | disposition home or self-care (01) ==
LOC: ED 19:01 → EDHOLD 19:01 → SUATTDRO 12-16 00:51 → EDHOLD 12-16 13:42
PROVIDERS: ADMIT Internal Medicine; ATTEND Student in an Organized Health Care Education/Training Program

== ENCOUNTER 2024-03-04 00:20 | Observation (INO) ==
[2024-03-04 00:57] LABS: ABS Basophils 0.1 10^3/uL (0.0-0.1); ABS Eosinophils 0.2 10^3/uL (0.0-0.5); ABS Lymphocytes 1.6 10^3/uL (1.0-4.8); ABS Monocytes 0.8 10^3/uL (0.0-1.1); ABS Neutrophils 4.9 10^3/uL (1.5-7.6); ABS Nucleated RBC 0.08 10^3/ul; Eosinophil % 2.4 %; Hematocrit 15.2 % (38-53); Hemoglobin 4.4 g/dL (13.2-16.3); Lymphocyte % 21.6 %; Mean Corpuscular Hemoglobin 16.1 pg (27-33); Mean Corpuscular Hgb Conc 29.3 g/dL (31-36); Mean Platelet Volume 8.2 fL (7.5-11.2); Nucleated Red Blood Cells % 1.1 %/100WBC (0.0-0.8); Platelet Count 262 10^3/uL (150-450); Red Blood Count 2.76 10^6/uL (4.06-5.63); Red Cell Distribution Width 21.9 % (12-17); White Blood Count 7.6 10^3/uL (3.6-10.2)
[2024-03-04 01:15] LABS: High Sens Troponin Baseline 33 pg/mL (<20)
[2024-03-04 01:37] LABS: ALT 20 U/L (7-52); AST 17 U/L (13-39); Albumin 3.8 g/dL (3.2-5.2); Albumin/Globulin Ratio 2.2 (1-3); Alkaline Phosphatase 52 U/L (35-149); Anion Gap 6 mmol/L (2-16); Blood Urea Nitrogen 10 mg/dL (6-24); CO2 Carbon Dioxide 28 mmol/L (22-32); Calcium 8.7 mg/dL (8.6-10.3); Chloride 101 mmol/L (101-111); Creatinine, Serum 0.68 mg/dL (0.67-1.17); Globulin 1.7 g/dL (2-4); Glucose 171 mg/dL (70-100); Potassium 3.7 mmol/L (3.5-5.0); Sodium 135 mmol/L (135-145); Total Bilirubin 0.3 mg/dL (0.2-1.0); Total Protein 5.5 g/dL (6.4-8.9); eGFR CKD-EPI 125.1 (>60)
[2024-03-04] MEDS: Pantoprazole VIAL 40 MG VIAL IV ONE (02:03)
[2024-03-04 02:04] LABS: INR 1.22 (0.85-1.14)
[2024-03-04 02:07] LABS: % Iron Saturation 4 % (15-55); .Transferrin 356 mg/dL (203-362); Iron < 20 ug/dL (50-212); Total Iron Binding Capacity 498 mcg/dL (250-450); Unsaturated Iron Binding 478 ug/dL
[2024-03-04 02:27] LABS: High Sensitivity Troponin 1 Hr 36 pg/mL (<20)
[2024-03-04 02:28] LABS: Ferritin 1.5 ng/mL (24-336)
[2024-03-04] MEDS ORDERED: Sulfur Hexaflouride MICROSPHR 25 MG VIAL IV PRN (03:31)
[2024-03-04 06:51] LABS: Calcium 8.2 mg/dL (8.6-10.3); Creatinine, Serum 0.54 mg/dL (0.67-1.17); Magnesium 1.8 mg/dL (1.9-2.7); Potassium 3.8 mmol/L (3.5-5.0); eGFR CKD-EPI 134.1 (>60)
[2024-03-04] MEDS: Pantoprazole VIAL 40 MG VIAL IV SCH (09:15)
[2024-03-04] MEDS: Ferric Gluconate IV 250 MG in NS 0.9% 250 ml 200 ML IVPB SCH (09:31)
[2024-03-04 09:58] LABS: Hematocrit 20.8 % (38-53); Hemoglobin 6.5 g/dL (13.2-16.3); Mean Corpuscular Hgb Conc 31.5 g/dL (31-36); Mean Corpuscular Volume 63.5 fL (80-97); Mean Platelet Volume 8.4 fL (7.5-11.2); Platelet Count 233 10^3/uL (150-450); Red Blood Count 3.27 10^6/uL (4.06-5.63); Red Cell Distribution Width 33.8 % (12-17); White Blood Count 5.8 10^3/uL (3.6-10.2)
[2024-03-04 10:28] LABS: ABS Basophils 0.1 10^3/uL (0.0-0.1); ABS Eosinophils 0.2 10^3/uL (0.0-0.5); ABS Lymphocytes 1.3 10^3/uL (1.0-4.8); ABS Monocytes 0.6 10^3/uL (0.0-1.1); ABS Neutrophils 3.6 10^3/uL (1.5-7.6); ABS Nucleated RBC 0.05 10^3/ul; Eosinophil % 3.3 %; Lymphocyte % 21.8 %; Nucleated Red Blood Cells % 0.8 %/100WBC (0.0-0.8)
[2024-03-04] MEDS: PEG 3000 GI LAVAGE 1 GALLON PO ONE (22:16)
[2024-03-04] MEDS: Magnesium Sulfate 2 gm BAG 2 GM/50 ML BAG IVPB ONE (22:17)
[2024-03-05 01:00] LABS: Hematocrit 23.3 % (38-53); Hemoglobin 7.5 g/dL (13.2-16.3)
[2024-03-05 07:12] LABS: Hemoglobin 7.8 g/dL (13.2-16.3); Mean Corpuscular Hemoglobin 21.2 pg (27-33); Mean Corpuscular Hgb Conc 32.4 g/dL (31-36); Mean Corpuscular Volume 65.3 fL (80-97); Mean Platelet Volume 8.5 fL (7.5-11.2); Platelet Count 237 10^3/uL (150-450); Red Blood Count 3.67 10^6/uL (4.06-5.63); White Blood Count 7.8 10^3/uL (3.6-10.2)
[2024-03-05 07:34] LABS: Calcium 8.5 mg/dL (8.6-10.3); Creatinine, Serum 0.64 mg/dL (0.67-1.17); Magnesium 2.3 mg/dL (1.9-2.7); Potassium 3.9 mmol/L (3.5-5.0); eGFR CKD-EPI 127.4 (>60)
[2024-03-05 07:53] LABS: ABS Basophils 0.1 10^3/uL (0.0-0.1); ABS Eosinophils 0.2 10^3/uL (0.0-0.5); ABS Lymphocytes 1.4 10^3/uL (1.0-4.8); ABS Monocytes 0.7 10^3/uL (0.0-1.1); ABS Neutrophils 5.4 10^3/uL (1.5-7.6); ABS Nucleated RBC 0.07 10^3/ul; Anisocytosis 3+; Eosinophil % 2.8 %; Hypochromasia 1+; Lymphocyte % 18.1 %; Microcytosis 3+; Nucleated Red Blood Cells % 0.9 %/100WBC (0.0-0.8)
[2024-03-05] MEDS: Ferric Gluconate IV 250 MG in NS 0.9% 250 ml 200 ML IVPB SCH (08:33)
[2024-03-05] MEDS ORDERED: Lidocaine 2% PF 5 ML VIAL ONE (14:44)
[2024-03-05] MEDS: Polyethylene Glycol 3350 BTL 238 GM BTL PO ONE (17:25)
[2024-03-06 06:14] LABS: ABS Basophils 0.1 10^3/uL (0.0-0.1); ABS Eosinophils 0.3 10^3/uL (0.0-0.5); ABS Lymphocytes 1.9 10^3/uL (1.0-4.8); ABS Monocytes 0.6 10^3/uL (0.0-1.1); ABS Neutrophils 4.4 10^3/uL (1.5-7.6); ABS Nucleated RBC 0.04 10^3/ul; Eosinophil % 4.2 %; Hematocrit 25.2 % (38-53); Hemoglobin 7.9 g/dL (13.2-16.3); Lymphocyte % 26.4 %; Mean Corpuscular Hemoglobin 20.9 pg (27-33); Mean Corpuscular Hgb Conc 31.5 g/dL (31-36); Mean Corpuscular Volume 66.2 fL (80-97); Mean Platelet Volume 8.3 fL (7.5-11.2); Nucleated Red Blood Cells % 0.5 %/100WBC (0.0-0.8); Platelet Count 238 10^3/uL (150-450); Red Blood Count 3.81 10^6/uL (4.06-5.63); Red Cell Distribution Width 35.5 % (12-17); White Blood Count 7.3 10^3/uL (3.6-10.2)
[2024-03-06 06:26] LABS: Calcium 8.5 mg/dL (8.6-10.3); Creatinine, Serum 0.68 mg/dL (0.67-1.17); Magnesium 2.2 mg/dL (1.9-2.7); Potassium 3.8 mmol/L (3.5-5.0); eGFR CKD-EPI 125.1 (>60)
[2024-03-06] MEDS: Enoxaparin 40 MG/0.4 ML SYR SUBCUT SCH (14:36)
[2024-03-06] MEDS ORDERED: Midazolam 5 mg/5 ml VIAL 1 mg/ml 5 ml VIAL (5 mg) ONE (15:43)
[2024-03-06] MEDS ORDERED: fentaNYL 100 mcg/2 ml 50 MCG/ML VIAL ONE (15:43)
[2024-03-06 18:26] VITALS: BP 155/78
== END 2024-03-06 19:40 | disposition home or self-care (01) ==
LOC: EDHOLD 00:20 → ED 00:20 → MED 01:40
PROVIDERS: ADMIT Student in an Organized Health Care Education/Training Program; ATTEND Internal Medicine